=== PATIENT | female | born 1980 | race Caucasian/White ===

== ENCOUNTER 2016-08-27 21:40 | Emergency (ER) | payer SELFPAY ==
[~2016-08-27] VITALS: Ht 172.7 cm; Wt 79.8 kg
[~2016-08-27 21:40] MED LIST: TRAM50 PO
[2016-08-27 22:31] VITALS: BP 136/86; PULSE 91; RESP 20; TEMP 98.8; O2SAT 99
[2016-08-28] MEDS ORDERED: cefTRIAXone INJ 1,000 MG in SODIUM CHLORIDE 0.9% INJ 100 ML IV ONE (01:00)
[2016-08-28] MEDS ORDERED: MORPHINE SULFATE 4 MG/ML INJ IV PUSH ONE (01:00)
[2016-08-28] MEDS ORDERED: AZITHROMYCIN 250 MG TAB PO ONE (01:00)
[2016-08-28] MEDS ORDERED: ONDANSETRON HCL 4 MG/2 ML VIAL IVP ONE (01:00)
[2016-08-28 01:31] VITALS: PULSE 82; O2SAT 99
[2016-08-28 01:59] LABS: BLOOD, URINE NEG (NEG); KETONE, URINE 15 mg/dL (NEG); PH, URINE 5.5 (5.0-8.5)
[2016-08-28 02:00] LABS: GLUCOSE,URINE 1000 OR GREATER mg/dL (NEG); NITRITE,URINE POS (NEG); URINE COLOR YELLOW (YELLW/STRAW)
[2016-08-28 02:04] LABS: AUTOMATED NEUTROPHIL # 5.3 TH/MM3 (1.8-7.7); BASOPHIL # 0.1 TH/MM3 (0-0.2); BASOPHIL % 1.2 % (0.0-2.0); EOSINOPHIL # 0.1 TH/MM3 (0-0.4); EOSINOPHIL % 1.7 % (0.0-4.0); HEMATOCRIT 42.4 % (35.0-46.0); HEMO FLAGS DIFF FINAL; LYMPH % 18.8 % (9.0-44.0); LYMPHOCYTE # 1.4 TH/MM3 (1.0-4.8); MEAN CORPUSCULAR HEMOGLOBIN 28.5 PG (27.0-34.0); MEAN CORPUSCULAR HGB CONC 33.2 % (32.0-36.0); MONO % 7.9 % (0.0-8.0); NEUT % 70.4 % (16.0-70.0); PLATELET COUNT 160 TH/MM3 (150-450); POTASSIUM 3.8 MEQ/L (3.5-5.1); RED BLOOD COUNT 4.93 MIL/MM3 (4.00-5.30); RED CELL DISTRIBUTION WIDTH 13.6 % (11.6-17.2); WHITE BLOOD COUNT 7.5 TH/MM3 (4.0-11.0)
[2016-08-28 02:07] LABS: BICARBONATE 24.7 MEQ/L (21.0-32.0)
[2016-08-28 02:07] LABS: BACTERIA, URINE MANY /hpf; COMMENT (UR) CULTURE INDICATED; CULTURE IF INDICATED CULTURE INDICATED; RBC, URINE 0-2 /hpf (0-3); SQUAMOUS EPITHELIAL CELL URINE 0-5 /hpf (0-5)
[2016-08-28 03:18] VITALS: PULSE 81; RESP 16; O2SAT 95
[2016-08-28 03:43] VITALS: BP 151/80; PULSE 81; RESP 16; O2SAT 99
[2016-08-28] MEDS ORDERED: DOXY100C PO (04:56)
[2016-08-28] MEDS ORDERED: VALT1TAB PO (04:56)
--- NOTE | 2016-08-28 04:57 | PD ---
HPI Chief Complaint: Supervisor Cell Efficiency Problem/Complaint Time Seen by Provider: 00:56 Travel History International Travel<30 days: No Contact w/Intl Traveler<30days: No Traveled to known affect area: No History of Present Illness HPI 36 year-old female presents to the emergency department for complaint of one week of severe worsening vaginal rash. Patient also notes dysuria. Patient is sexually active. Patient denies . Patient's had no vaginal discharge or abnormal vaginal bleeding. Last menstrual period was normal for her. Patient rates pain 10 over 10 in intensity. Patient is unable to identify exacerbating or alleviating factors as nothing seems to help and everything seems to worsen her symptoms. Patient is use over the Counter pain medication without relief. PFSH Past Medical History Narrative Medical Anemia, gestational diabetes, migraines, immunizations current, cholecystectomy; tobacco use marijuana use; nursing notes reviewed Hx Anticoagulant Therapy: No Anemia: Yes Cardiovascular Problems: No Chemotherapy: No Cerebrovascular Accident: No Diabetes: Yes (GESTATIONAL, HX OF ELEVATED HEMOGLOBIN A1C) Patient Takes Glucophage: No Diminished Hearing: No Respiratory: No Immunizations Current: Yes Migraines: Yes Influenza Vaccination: No ?: Unknown LMP: 08/15/16 : 2 Para: 2 Past Surgical History Section: Yes (X2) Cholecystectomy: Yes Hysterectomy: No Social History Alcohol Use: No Tobacco Use: Yes (1 /2 PPD) Substance Use: Yes (MARIJUANA) Allergies-Medications (Allergen,Severity, Reaction): Coded Allergies: No Known Allergies (Unverified , 08/27/16) Reported Meds & Prescriptions Reported Meds & Active Scripts Active Lortab (Hydrocodone-Acetaminophen) 5-325 Mg Tab 1 Tab PO Q6H PRN Doxycycline Hyclate 100 Mg Cap 100 Mg PO BID Valtrex (Valacyclovir HCl) 1 Gm Tab 1,000 Mg PO BID 7 Days Review of Systems Except as stated in HPI: all other systems reviewed are Neg Physical Exam Narrative GENERAL: Well-developed well-nourished female in obvious discomfort SKIN: Warm and dry. HEAD: Normocephalic. EYES: No scleral icterus. No injection or drainage. NECK: Supple, trachea midline. No JVD or lymphadenopathy. CARDIOVASCULAR: Regular rate and rhythm without murmurs, gallops, or rubs. RESPIRATORY: Breath sounds equal bilaterally. No accessory muscle use. GASTROINTESTINAL: Abdomen soft, non-tender, nondistended. Pelvic exam: External exam multiple vesicular lesions no pustules no blood; speculum exam extensive vesicular lesions consistent with herpetic changes scant white mucoid discharge no blood no clots no tissue cervical os closed; bimanual exam marked tenderness on exam due to inflammation of the vaginal mucosa but no cervical motion tenderness or uterine enlargement and no adnexal mass or tenderness. MUSCULOSKELETAL: No cyanosis, or edema. BACK: Nontender without obvious deformity. No CVA tenderness. Data Data Last Documented VS Vital Signs Date Time Temp Pulse Resp B/P Pulse Ox O2 Delivery O2 Flow Rate FiO2 08/28/16 05:17 80 16 132/80 98 Room Air 08/27/16 22:31 98.8 Orders Complete Blood Count With Diff (08/28/16 00:56) Basic Metabolic Panel (Bmp) (08/28/16 00:56) Gc And Chlamydia Pcr (08/28/16 00:56) Wet Prep Profile (08/28/16 00:56) Urinalysis - C+S If Indicated (08/28/16 00:56) Iv Access Insert/Monitor (08/28/16 00:56) Ceftriaxone Inj (Rocephin Inj) (08/28/16 01:00) Ondansetron Inj (Zofran Inj) (08/28/16 01:00) Herpes Simplex Virus Culture (08/28/16 00:56) Ed Urine Pregnancytest Poc (08/28/16 00:56) Azithromycin (Zithromax) (08/28/16 01:00) Morphine Inj (Morphine Inj) (08/28/16 01:00) Group A Rapid Strep Screen (08/28/16 01:17) Urine Culture (08/28/16 00:01) Strep Culture (Group A) (08/28/16 01:10) Labs Laboratory Tests Test 08/28/16 08/28/16 08/28/16 00:01 01:00 01:15 Urine Color YELLOW Urine Turbidity CLEAR Urine pH 5.5 Urine Specific [place] GREATER THAN 1.035 Urine Protein NEG mg/dL Urine Glucose (UA) 1000 OR GREATER mg/dL Urine Ketones 15 mg/dL Urine Occult Blood NEG Urine Nitrite POS Urine Bilirubin NEG Urine Leukocyte Esterase NEG Urine RBC 0-2 /hpf Urine WBC 3-5 /hpf Urine Squamous Epithelial 0-5 /hpf Cells Urine Bacteria MANY /hpf Microscopic Urinalysis Comment CULTURE INDICATED Clue Cells (Wet Prep) NONE SEEN Vaginal Trichomonas (Wet Prep) NONE SEEN Vaginal Yeast (Wet Prep) NONE SEEN Chlamydia trachomatis DNA NOT DETECTED (PCR) Neisseria gonorrhoeae DNA NOT DETECTED (PCR) White Blood Count 7.5 TH/MM3 Red Blood Count 4.93 MIL/MM3 Hemoglobin 14.1 GM/DL Hematocrit 42.4 % Mean Corpuscular Volume 86.0 FL Mean Corpuscular Hemoglobin 28.5 PG Mean Corpuscular Hemoglobin 33.2 % Concent Red Cell Distribution Width 13.6 % Platelet Count 160 TH/MM3 Mean Platelet Volume 8.9 FL Neutrophils (%) (Auto) 70.4 % Lymphocytes (%) (Auto) 18.8 % Monocytes (%) (Auto) 7.9 % Eosinophils (%) (Auto) 1.7 % Basophils (%) (Auto) 1.2 % Neutrophils # (Auto) 5.3 TH/MM3 Lymphocytes # (Auto) 1.4 TH/MM3 Monocytes # (Auto) 0.6 TH/MM3 Eosinophils # (Auto) 0.1 TH/MM3 Basophils # (Auto) 0.1 TH/MM3 CBC Comment DIFF FINAL Differential Comment Sodium Level 139 MEQ/L Potassium Level 3.8 MEQ/L Chloride Level 105 MEQ/L Carbon Dioxide Level 24.7 MEQ/L Anion Gap 9 MEQ/L Blood Urea Nitrogen 8 MG/DL Creatinine 0.65 MG/DL Estimat Glomerular Filtration 103 ML/MIN Rate Random Glucose 295 MG/DL Calcium Level 8.5 MG/DL MDM Medical Decision Making Medical Screen Exam Complete: Yes Emergency Medical Condition: Yes Medical Record Reviewed: Yes Interpretation(s) CBC & BMP Diagram 08/28/16 01:15 Wet prep negative Urinalysis positive for nitrites and many bacteria culture indicated [id number] hCG negative Differential Diagnosis Genital herpes, STI, regnancy, UTI Narrative Course [id number] hCG is negative; specimens collected and sent for resulting Patient administered morphine sulfate 4 pain management Urinalysis abnormal with positive nitrites and many bacteria patient given first dose of IV antibiotic Rocephin 1 g as well as 1 g azithromycin presumptively STI Patient clinically improved and given prescription for Valtrex as well as oral antibiotic and encouraged to follow-up with primary care provider remain abstinent until all lab tests resulted Wet prep negative Diagnosis Primary Impression: Herpes genitalis Additional Impression: UTI (urinary tract infection) Referrals: Primary Care Physician call for appointment Patient Instructions: General Instructions, Narcotic given in the ED Additional Instructions: Take pain medication as prescribed Use ibuprofen/Advil/Motrin 800 mg as often as every 8 hours as needed for pain associated inflammation or for fever 100.4F or greater Complete course of antibiotic and antiviral as prescribed Follow-up with your primary care provider call office in a.m. No sexual activity until all symptoms resolved May take acetaminophen/Tylenol every 4 hours as needed for fever 100.4F or greater No work 2 days Return to the emergency department for a concerns or change in condition Med/Other Pt SpecificInfo: Prescription(s) given Scripts Hydrocodone-Acetaminophen (Lortab)5-325 Mg Tab1 Tab PO Q6H PRN (PAIN) #15 TAB Ref 0 Prov:Marsha Bay MD 08/28/16 Doxycycline Hyclate 100 Mg [id number] Mg PO BID #14 CAP Ref 0 Prov:Marsha Bay MD 08/28/16 Valacyclovir (Valtrex)1 Gm Tab1,000 Mg PO BID 7 Days Ref 0 Prov:Marsha Bay MD 08/28/16 Disposition: 01 DISCHARGE HOME Condition: Stable Marsha Bay MD Aug 28, 2016 04:56
[2016-08-28] MEDS ORDERED: HYDR-3533 PO ×2 (05:07→05:09)
[2016-08-28 05:17] VITALS: BP 132/80; PULSE 80; RESP 16; O2SAT 98
[2016-08-28 08:04] LABS: CHLAMYDIA PCR NOT DETECTED (NOT DETECT); NEISSERIA PCR NOT DETECTED (NOT DETECT)
== END 2016-08-28 05:21 | disposition home or self-care (01) ==
LOC: PHED 21:40
DX: A60.00 Herpesviral infection of urogenital system, unspecified (principal); N39.0 Urinary tract infection, site not specified; B96.29 Other Escherichia coli [E. coli] as the cause of diseases classified elsewhere; D64.9 Anemia, unspecified; F17.210 Nicotine dependence, cigarettes, uncomplicated; F12.10 Cannabis abuse, uncomplicated
CPT/HCPCS: 80048; 81001; 84703; 85025; 87077; 87081; 87086; 87186; 87210; 87255; 87491; 87591; 87880; 96365; 96375; 99283; J0696; J2270; J2405

== ENCOUNTER 2016-08-31 12:30 | Emergency (ER) | payer SELFPAY ==
[~2016-08-31] VITALS: Ht 172.7 cm; Wt 77.0 kg
[~2016-08-31 12:30] MED LIST changes: +DOXY100C PO; +HYDR-3533 PO; -TRAM50 PO; +VALT1TAB PO
[2016-08-31 12:37] VITALS: BP 159/117; PULSE 126; RESP 18; TEMP 98.2; O2SAT 97
--- NOTE | 2016-08-31 12:46 | PD ---
HPI Chief Complaint: ENT Complaint Time Seen by Provider: 12:46 Travel History International Travel<30 days: No Contact w/Intl Traveler<30days: No Traveled to known affect area: No History of Present Illness HPI 36-year-old female presents to the ED for evaluation of 3 day history of sore throat. Gradual onset. Patient endorses subjective fevers, odynophagia, radiation of the pain into the ear and jaw. She denies headache, sinus congestion, cough, dysphagia, nausea or vomiting. The patient states that she was seen in the hospital 08/27. She was prescribed antibiotics at that time, but was unable to have them filled until yesterday. She states she's taken 3 doses of doxycycline total. Patient is current smoker. She denies chronic health problems, takes no daily medications. NKDA. PFSH Past Medical History Hx Anticoagulant Therapy: No Anemia: Yes Cardiovascular Problems: No Chemotherapy: No Cerebrovascular Accident: No Diabetes: Yes (GESTATIONAL, HX OF ELEVATED HEMOGLOBIN A1C) Diminished Hearing: No Respiratory: No Immunizations Current: Yes Migraines: Yes ?: Not LMP: 08/15/16 : 2 Para: 2 Past Surgical History Section: Yes (X2) Cholecystectomy: Yes Hysterectomy: No Social History Alcohol Use: No Tobacco Use: Yes (07/13 PPD) Substance Use: Yes (MARIJUANA) Allergies-Medications (Allergen,Severity, Reaction): Coded Allergies: No Known Allergies (Unverified , 08/31/16) Reported Meds & Prescriptions Reported Meds & Active Scripts Active Lidocaine Viscous Liq 2 % Liqd 5 Ml SWISH-SWAL Q4-6H PRN Prednisone 5 Mg Tab 5 Mg PO DAILY 6 Days Take 2 tablets tomorrow morning. Take a single tablet daily for the following four days. Doxycycline Hyclate 100 Mg Cap 100 Mg PO BID Review of Systems Except as stated in HPI: all other systems reviewed are Neg Physical Exam Narrative GENERAL: Well-nourished, well-developed white female in no acute distress. SKIN: Warm and dry. HEAD: Normocephalic. Atraumatic. EYES: No scleral icterus. No injection or drainage. PERRLA. EOMI. ENT: Pearly hernandez tympanic membranes bilaterally. Nasal mucosa is moist. Oropharynx erythematous, scattered exudates. Tonsils 1+ bilaterally. There is a single vesicular lesion of the right tonsil. No edema. Floor of the mouth is soft. Uvula midline. Airway patent. Patient is able to swallow her own secretions. NECK: Supple, trachea midline. No JVD. ++ right-sided lymphadenopathy. CARDIOVASCULAR: Regular rate and rhythm without murmurs, gallops, or rubs. 2+ DP and radial pulses bilaterally. RESPIRATORY: Breath sounds clear and equal bilaterally. No accessory muscle use. GASTROINTESTINAL: Abdomen soft, non-tender, nondistended. + Bowel sounds MUSCULOSKELETAL: No cyanosis, or edema. Patient is ambulatory, moves the extremities spontaneously. BACK: Nontender without obvious deformity. No CVA tenderness. Data Data Last Documented VS Vital Signs Date Time Temp Pulse Resp B/P Pulse Ox O2 Delivery O2 Flow Rate FiO2 08/31/16 13:20 106 20 144/76 100 08/31/16 12:37 98.2 Orders Group A Rapid Strep Screen (08/31/16 12:52) Dexamethasone Inj (Decadron Inj) (08/31/16 13:30) Ibuprofen (Motrin) (08/31/16 13:30) Strep Culture (Group A) (08/31/16 13:00) MDM Medical Decision Making Medical Screen Exam Complete: Yes Emergency Medical Condition: Yes Differential Diagnosis Pharyngitis versus strep pharyngitis versus HSV versus other Narrative Course 36-year-old female presents to the ED for evaluation of 3 day history of sore throat. Gradual onset. Patient endorses subjective fevers, odynophagia, radiation of the pain into the ear and jaw. She denies headache, sinus congestion, cough, dysphagia, nausea or vomiting. The patient states that she was seen in the hospital 08/27. She was prescribed antibiotics at that time, but was unable to have them filled due to financial problems until yesterday. She states she's taken 3 doses of doxycycline total. Patient is current smoker. Review the patient's record reveals that she was diagnosed with herpes genitalis. Vitals reviewed. Patient is tachycardic and hypertensive on presentation. She states she smoked a cigarette just before entering the ED. Physical exam reveals a nontoxic-appearing white female in no acute distress. Bilateral tympanic membranes without erythema, no loss of landmarks. The oropharynx is mildly erythematous. Tonsils 1+ bilaterally. There is a single vesicular lesion on the right tonsil. Scant exudate. Uvula midline, airway patent. Floor of the mouth is soft. Positive right sided tender lymphadenopathy. Rapid strep Negative. 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 The patient was administered IM steroids and ibuprofen. She was prescribed viscous lidocaine and stepdown oral steroids. She is instructed to continue taking medications prescribed at previous discharge as well as newly prescribed medications, follow up with the primary care provider. She was provided coupons from [employer]. We discussed reasons to return to the ED. She indicated understanding of the instructions. She is amenable to plan of care. She is stable and discharged home. Diagnosis Primary Impression: Pharyngitis Qualified Code: J02.9 - Pharyngitis, unspecified etiology Referrals: Primary Care Physician Patient Instructions: General Instructions, Pharyngitis (ED) Additional Instructions: Continue to take medicine prescribed at previous discharge. Begin taking prednisone tomorrow morning as discussed. Viscous lidocaine every 4-6 hours as needed for throat pain. Return to the ED for worsening of symptoms as discussed. Follow-up with the primary care provider this week. Return to the ED for any urgent or emergent medical condition. Med/Other Pt SpecificInfo: Prescription(s) given Scripts Lidocaine Viscous Liq 2 % Liqd5 Ml SWISH-SWAL Q4-6H PRN (PAIN) #1 BOTTLE Ref 0 Prov:Erick Ye MD 08/31/16 Prednisone 5 Mg Tab5 Mg PO DAILY 6 Days Ref 0 Take 2 tablets tomorrow morning. Take a single tablet daily for the following four days. Prov:Erick Ye MD 08/31/16 Disposition: 01 DISCHARGE HOME Condition: Stable Helga Diaz Aug 31, 2016 12:46
[2016-08-31 13:20] VITALS: BP 144/76; PULSE 106; RESP 20; O2SAT 100
[2016-08-31] MEDS ORDERED: PRED5TAB PO (13:21)
[2016-08-31] MEDS ORDERED: IBUPROFEN 600 MG TAB PO ONE (13:30)
[2016-08-31] MEDS ORDERED: DEXAMETHASONE SOD PHOS 4 MG/ML VIAL IM ONE (13:30)
[2016-08-31] MEDS ORDERED: LIDO1SOL8 SWISH-SWAL (13:34)
== END 2016-08-31 13:57 | disposition home or self-care (01) ==
LOC: PHEFT 12:30
DX: J02.9 Acute pharyngitis, unspecified (principal); F17.210 Nicotine dependence, cigarettes, uncomplicated
CPT/HCPCS: 87081; 87880; 96372; 99283; J1100

== ENCOUNTER 2017-03-03 18:56 | Emergency (ER) | payer MEDICAID, OTHER ==
[~2017-03-03] VITALS: Ht 172.7 cm; Wt 76.0 kg
[~2017-03-03 18:56] MED LIST changes: -HYDR-3533 PO; +LIDO1SOL8 SWISH-SWAL; +PRED5TAB PO; -VALT1TAB PO
[2017-03-03 19:01] VITALS: BP 145/75; PULSE 118; RESP 20; TEMP 100.1; O2SAT 100
[2017-03-03 19:29] VITALS: BP 145/75; PULSE 114; RESP 18; TEMP 100.1; O2SAT 100
--- NOTE | 2017-03-03 19:54 | PD ---
HPI Chief Complaint: Complaint Time Seen by Provider: 19:44 Travel History International Travel<30 days: No Contact w/Intl Traveler<30days: No Traveled to known affect area: No History of Present Illness HPI This 36-year-old female is having some right flank pain with radiate to the front of the abdomen. It started this morning and is now at a level of 6. She has a history of gestational diabetes has been urinating frequently. She is currently on her period PFSH Past Medical History Hx Anticoagulant Therapy: No Anemia: Yes Cardiovascular Problems: No Chemotherapy: No Cerebrovascular Accident: No Diabetes: Yes (GESTATIONAL) Patient Takes Glucophage: No Diminished Hearing: No Medical other: Yes (PT STATES SHE "THINKS SHE MIGHT HAVE HERPES B/C SHE WAS ONCE TX FOR IT") Respiratory: No Immunizations Current: Yes Migraines: Yes Tetanus Vaccination: < 5 Years Influenza Vaccination: No ?: Not LMP: 03/03/17 : 2 Para: 2 Past Surgical History Section: Yes (X2) Cholecystectomy: Yes Hysterectomy: No Social History Alcohol Use: No Tobacco Use: Yes (1 /2 PPD) Substance Use: Yes (MARIJUANA) Allergies-Medications (Allergen,Severity, Reaction): Coded Allergies: No Known Allergies (Unverified , 03/03/17) Reported Meds & Prescriptions Reported Meds & Active Scripts Active Flagyl (Metronidazole) 500 Mg Tab 500 Mg PO TID 7 Days Ciprofloxacin (Ciprofloxacin HCl) 500 Mg Tab 500 Mg PO BID 14 Days Review of Systems General / Constitutional: Positive: Fever Eyes: No: Diploplia, Blurred Vision HENT: No: Headaches, Vertigo Cardiovascular: No: Chest Pain or Discomfort Respiratory: No: Cough, Shortness of Breath Gastrointestinal: No: Nausea, Vomiting Genitourinary: Positive: Urgency, Frequency, Flank Pain Skin: No Rash, No Itching Psychiatric: No: Anxiety Physical Exam Narrative GENERAL: Well-developed female SKIN: Focused skin assessment warm/dry. HEAD: Atraumatic. Normocephalic. EYES: Pupils equal and round. No scleral icterus. No injection or drainage. ENT: No nasal bleeding or discharge. Mucous membranes pink and moist. NECK: Trachea midline. No JVD. CARDIOVASCULAR: Regular rate and rhythm. No murmur appreciated. RESPIRATORY: No accessory muscle use. Clear to auscultation. Breath sounds equal bilaterally. GASTROINTESTINAL: Abdomen soft, non-tender, nondistended. Hepatic and splenic margins not palpable. There is some right CVA tenderness MUSCULOSKELETAL: No obvious deformities. No clubbing. No cyanosis. No edema. NEUROLOGICAL: Awake and alert. No obvious cranial nerve deficits. Motor grossly within normal limits. Normal speech. PSYCHIATRIC: Appropriate mood and affect; insight and judgment normal. Data Data Last Documented VS Vital Signs Date Time Temp Pulse Resp B/P (MAP) Pulse Ox O2 Delivery O2 Flow Rate FiO2 03/03/17 19:29 100.1 114 18 145/75 (98) 100 Room Air Orders Orders Complete Blood Count With Diff (03/03/17 19:49) Comprehensive Metabolic Panel (03/03/17 19:49) Urinalysis - C+S If Indicated (03/03/17 19:49) Sodium Chlor 0.9% 1000 Ml Inj (Ns 1000 M (03/03/17 20:00) Ketorolac Inj (Toradol Inj) (03/03/17 20:00) Urine Culture (03/03/17 20:05) Ciprofloxacin (Cipro) (03/03/17 21:00) Labs Laboratory Tests Test 03/03/17 20:05 03/03/17 20:19 Urine Collection Type VOIDED Urine Color YELLOW Urine Turbidity CLOUDY Urine pH 6.0 Urine Specific [place] 1.027 Urine Protein 30 mg/dL Urine Glucose (UA) 1000 OR GREATER mg/dL Urine Ketones 15 mg/dL Urine Occult Blood LARGE Urine Nitrite POS Urine Bilirubin NEG Urine Leukocyte Esterase SMALL Urine RBC 0-3 /hpf Urine WBC 100-200 /hpf Urine WBC Clumps MOD Urine Bacteria MOD /hpf Microscopic Urinalysis Comment CULTURE INDICATED Urine Collection Time 2004 White Blood Count 10.9 TH/MM3 Red Blood Count 5.11 MIL/MM3 Hemoglobin 14.9 GM/DL Hematocrit 45.3 % Mean Corpuscular Volume 88.6 FL Mean Corpuscular Hemoglobin 29.1 PG Mean Corpuscular Hemoglobin Concent 32.9 % Red Cell Distribution Width 12.9 % Platelet Count 119 TH/MM3 Mean Platelet Volume 9.2 FL Neutrophils (%) (Auto) 90.4 % Lymphocytes (%) (Auto) 4.2 % Monocytes (%) (Auto) 3.2 % Eosinophils (%) (Auto) 0.8 % Basophils (%) (Auto) 1.4 % Neutrophils # (Auto) 9.8 TH/MM3 Lymphocytes # (Auto) 0.5 TH/MM3 Monocytes # (Auto) 0.3 TH/MM3 Eosinophils # (Auto) 0.1 TH/MM3 Basophils # (Auto) 0.2 TH/MM3 CBC Comment DIFF FINAL Differential Comment Blood Urea Nitrogen 10 MG/DL Creatinine 0.83 MG/DL Random Glucose 334 MG/DL Total Protein 7.9 GM/DL Albumin 3.7 GM/DL Calcium Level 8.8 MG/DL Alkaline Phosphatase 113 U/L Aspartate Amino Transf (AST/SGOT) 21 U/L Alanine Aminotransferase (ALT/SGPT) 28 U/L Total Bilirubin 0.4 MG/DL Sodium Level 134 MEQ/L Potassium Level 3.8 MEQ/L Chloride Level 101 MEQ/L Carbon Dioxide Level 24.0 MEQ/L Anion Gap 9 MEQ/L Estimat Glomerular Filtration Rate 77 ML/MIN [facility] Medical Decision Making Medical Screen Exam Complete: Yes Emergency Medical Condition: Yes Medical Record Reviewed: Yes Differential Diagnosis Differential includes renal colic, pyelonephritis, musculoskeletal pain Narrative Course Urinalysis shows evidence of infection. White count is normal. Her sugar is elevated. She'll be put on Cipro and is to follow-up with her own medical doctor. Patient has a history of bacterial vaginosis and says she is having an exacerbation. She is here with 3 children and is not feasible to do a pelvic exam at this time. I will prescribe Flagyl Diagnosis Primary Impression: Pyelonephritis Scripts Metronidazole (Flagyl) 500 Mg Tab 500 MG PO TID for Infection for 7 Days, TAB 0 Refills Prov: Erick Ye MD 03/03/17 Ciprofloxacin (Ciprofloxacin) 500 Mg Tab 500 MG PO BID for Infection for 14 Days, TAB 0 Refills Prov: Erick Ye MD 03/03/17 Disposition: 01 DISCHARGE HOME Condition: Stable Erick Ye MD Mar 03, 2017 19:54
[2017-03-03] MEDS ORDERED: SODIUM CHLOR 0.9% 1000 ML INJ 1,000 ML IV ONE (20:00)
[2017-03-03] MEDS ORDERED: KETOROLAC TROMETHAMINE 30 MG/ML (IVP) VIAL IV PUSH ONE (20:00)
[2017-03-03 20:13] LABS: BLOOD, URINE LARGE (NEG); GLUCOSE,URINE 1000 OR GREATER mg/dL (NEG); KETONE, URINE 15 mg/dL (NEG); NITRITE,URINE POS (NEG)
[2017-03-03 20:24] LABS: BACTERIA, URINE MOD /hpf; COMMENT (UR) CULTURE INDICATED; CULTURE IF INDICATED CULTURE INDICATED; METHOD OF COLLECTION VOIDED; RBC, URINE 0-3 /hpf (0-3); URINE COLOR YELLOW (YELLW/STRAW); WBC, URINE 100-200 /hpf (0-5)
[2017-03-03 20:30] LABS: AUTOMATED NEUTROPHIL # 9.8 TH/MM3 (1.8-7.7); BASOPHIL # 0.2 TH/MM3 (0-0.2); BASOPHIL % 1.4 % (0.0-2.0); EOSINOPHIL # 0.1 TH/MM3 (0-0.4); EOSINOPHIL % 0.8 % (0.0-4.0); HEMATOCRIT 45.3 % (35.0-46.0); LYMPH % 4.2 % (9.0-44.0); LYMPHOCYTE # 0.5 TH/MM3 (1.0-4.8); MEAN CELL VOLUME 88.6 FL (80.0-100.0); MEAN CORPUSCULAR HEMOGLOBIN 29.1 PG (27.0-34.0); MEAN CORPUSCULAR HGB CONC 32.9 % (32.0-36.0); MONO % 3.2 % (0.0-8.0); NEUT % 90.4 % (16.0-70.0); PLATELET COUNT 119 TH/MM3 (150-450); RED BLOOD COUNT 5.11 MIL/MM3 (4.00-5.30); RED CELL DISTRIBUTION WIDTH 12.9 % (11.6-17.2); WHITE BLOOD COUNT 10.9 TH/MM3 (4.0-11.0)
[2017-03-03 20:33] LABS: CHLORIDE 101 MEQ/L (98-107); POTASSIUM 3.8 MEQ/L (3.5-5.1); SODIUM (NA) 134 MEQ/L (136-145)
[2017-03-03 20:35] LABS: HEMO FLAGS DIFF FINAL
[2017-03-03 20:36] LABS: ANION GAP 9 MEQ/L (5-15); BLOOD UREA NITROGEN 10 MG/DL (7-18)
[2017-03-03 20:39] LABS: ALT (GPT) 28 U/L (10-53); AST (GOT) 21 U/L (15-37); GLOMERULAR FILTRATION RATE 77 ML/MIN (>89)
[2017-03-03 20:41] LABS: TOTAL BILIRUBIN ADULT 0.4 MG/DL (0.2-1.0)
[2017-03-03 20:42] LABS: ALKALINE PHOSPHATASE 113 U/L (45-117)
[2017-03-03] MEDS ORDERED: CIPR500T2 PO (20:47)
[2017-03-03] MEDS ORDERED: METR-1 PO (20:47)
[2017-03-03] MEDS ORDERED: CIPROFLOXACIN 500 MG TAB PO ONE (21:00)
[2017-03-03 21:13] VITALS: RESP 18
[2017-03-03 21:20] VITALS: BP 103/53
== END 2017-03-03 21:24 | disposition home or self-care (01) ==
LOC: PHED 18:56
DX: N12 Tubulo-interstitial nephritis, not specified as acute or chronic (principal); A49.8 Other bacterial infections of unspecified site; F17.210 Nicotine dependence, cigarettes, uncomplicated; Z86.32 Personal history of gestational diabetes; D64.9 Anemia, unspecified
CPT/HCPCS: 80053; 81001; 85025; 87077; 87086; 87186; 96374; 99284; J1885; J7030

== ENCOUNTER 2017-10-12 18:29 | Emergency (ER) | payer MEDICAID ==
[~2017-10-12] VITALS: Ht 170.2 cm; Wt 74.5 kg
[~2017-10-12 18:29] MED LIST changes: +CIPR500T2 PO; -DOXY100C PO; -LIDO1SOL8 SWISH-SWAL; +METR-1 PO; -PRED5TAB PO
[2017-10-12 18:39] VITALS: BP 119/64; PULSE 102; RESP 20; TEMP 98.1; O2SAT 100
[2017-10-12] MEDS ORDERED: MOME17I EACH NARE (20:37)
[2017-10-12] MEDS ORDERED: AMOX500C PO (20:37)
[2017-10-12] MEDS ORDERED: IBUP1TAB7 PO (20:37)
--- NOTE | 2017-10-12 20:37 | PD ---
HPI Chief Complaint: Cold / Flu Symptoms Time Seen by Provider: 20:26 Travel History International Travel<30 days: No Contact w/Intl Traveler<30days: No Traveled to known affect area: No History of Present Illness HPI 37-year-old female presents to the emergency department requesting antibiotics for what she thinks is a sinus infection. She reports sinus pressure 3 days. Also reports left-sided facial pain. Reports nasal congestion, cough, green sputum production. Denies fevers, vomiting. Denies ear pain, sore throat. No others with similar symptoms. Symptoms are mild in severity. No known aggravating or relieving factors. Has tried taking Aleve for symptom management. No primary care provider. No known allergies. Denies significant past medical history. Has no other medical complaints. No other modifying factors or associated signs and symptoms. PFSH Past Medical History Hx Anticoagulant Therapy: No Anemia: Yes Cardiovascular Problems: No Chemotherapy: No Cerebrovascular Accident: No Diabetes: Yes (GESTATIONAL) Diminished Hearing: No Respiratory: No Immunizations Current: Yes Migraines: Yes ?: Not LMP: 09/17/2017 : 2 Para: 2 Past Surgical History Section: Yes (X2) Cholecystectomy: Yes Hysterectomy: No Social History Alcohol Use: No Tobacco Use: Yes (1 /2 PPD) Substance Use: Yes (MARIJUANA) Allergies-Medications (Allergen,Severity, Reaction): Coded Allergies: No Known Allergies (Unverified Adverse Reaction, Unknown, 10/12/17) Reported Meds & Prescriptions Reported Meds & Active Scripts Active Review of Systems Except as stated in HPI: all other systems reviewed are Neg Physical Exam Narrative GENERAL: Well-nourished, well-developed patient, in no acute distress ; afebrile, nontoxic-appearing SKIN: Warm and dry. No rash. HEAD: Atraumatic. Normocephalic. No facial edema or erythema. Frontal and maxillary sinus tenderness on palpation. EYES: Pupils equal and round. No scleral icterus. No injection or drainage. ENT: Mucosa pink and moist. No erythema or exudates. No uvular edema. No uvular , palatal, or tonsillar deviation. Airway patent. EARS: Bilateral pinnae and external canals appear within normal limits. Bilateral tympanic membranes without erythema, dullness or perforation. MOUTH: Mucous membranes moist, no lesions, tongue and gums appear normal. No tenderness elicited on palpation of the upper or lower dentition. No obvious abscesses noted. NECK: Trachea midline. No lymphadenopathy. CARDIOVASCULAR: Regular rate and rhythm. No murmur appreciated. RESPIRATORY: No accessory muscle use. Clear to auscultation. Breath sounds equal bilaterally. No retractions or tachypnea. GASTROINTESTINAL: Abdomen soft, non-tender, nondistended. Hepatic and splenic margins not palpable. Bowel sounds are active 4 quadrants. MUSCULOSKELETAL: No obvious deformities. No clubbing. No cyanosis. No edema. NEUROLOGICAL: Awake and alert. Oriented 3. No obvious cranial nerve deficits. Motor grossly within normal limits. Normal speech. Moves all extremities. 5/5 strength to all extremities. PSYCHIATRIC: Appropriate mood and affect; insight and judgment normal. Data Data Last Documented VS Vital Signs Date Time Temp Pulse Resp B/P (MAP) Pulse Ox O2 Delivery O2 Flow Rate FiO2 10/12/17 18:39 98.1 102 20 119/64 (82) 100 Orders Orders Ed Discharge Order (10/12/17 20:37) MDM Medical Decision Making Medical Screen Exam Complete: Yes Emergency Medical Condition: Yes Medical Record Reviewed: Yes Differential Diagnosis Sinusitis, dentalgia, dental abscess, upper respiratory infection Narrative Course 37-year-old female physical exam and HPI consistent with sinusitis. Patient requesting antibiotics. Patient is afebrile and nontoxic-appearing. Denies fever, vomiting. Amoxicillin and Nasonex nasal spray prescribed for home. Instructed patient to follow-up with dentist if dental pain persists. I was unable to elicit dental pain on exam. Instructed patient to follow up with primary care provider. Patient verbalizes understanding and agreement with treatment plan. Patient is medically cleared and stable for discharge. Discussed reasons to return to the emergency department. Patient agrees with treatment plan. The patients vital signs are stable and the patient is stable for outpatient follow-up and treatment. Patient discharged home, stable and in no acute distress. Diagnosis Primary Impression: Sinusitis Qualified Codes: J32.9 - Chronic sinusitis, unspecified Referrals: [facility] Primary Care Physician Patient Instructions: Cold Symptoms (ED), General Instructions, Safe Use of Cough and Cold Medicines (ED), Sinusitis (ED) Additional Instructions: Antibiotics as prescribed and complete full course Ibuprofen or Tylenol as instructed and as needed for fever/pain [id number] cough and cold medications as directed and as needed for symptom management Get plenty of sleep/rest Drink plenty of fluids to prevent dehydration; popsicles and Gatorade Use an air humidifier/turn off ceiling fans Follow-up with primary care provider Return immediately to the emergency department with worsening of symptoms Disposition: 01 DISCHARGE HOME Condition: Stable Joanie Benitez [facility] Oct 12, 2017 20:37
== END 2017-10-12 20:55 | disposition home or self-care (01) ==
LOC: NEPK 18:29
DX: J32.9 Chronic sinusitis, unspecified (principal); F17.210 Nicotine dependence, cigarettes, uncomplicated
CPT/HCPCS: 99282